=== PATIENT | female | born 1960 | race Caucasian/White ===

== ENCOUNTER 2017-04-09 10:47 | Emergency (ER) | payer OTHER ==
[~2017-04-09] VITALS: Ht 154.9 cm; Wt 68.8 kg
[~2017-04-09 10:47] MED LIST: BUDE.5I NEB; IBUP800T23 PO; PERC5TAB12 PO; PROZ20CA11 PO
[2017-04-09 11:03] VITALS: BP 125/79; PULSE 88; RESP 22; TEMP 97.9; O2SAT 94
[2017-04-09] MEDS ORDERED: TRAZ50TA12 PO (11:23)
[2017-04-09] MEDS ORDERED: PULM180I INH (11:23)
[2017-04-09] MEDS ORDERED: LOVA20TA PO (11:23)
[2017-04-09] MEDS ORDERED: VENTAER INH (11:23)
[2017-04-09] MEDS ORDERED: ESSE250T PO (11:23)
[2017-04-09] MEDS ORDERED: PROZ40CA PO (11:23)
[2017-04-09] MEDS ORDERED: ALPR.25 PO (11:23)
[2017-04-09] MEDS ORDERED: RED600TA PO (11:23)
[2017-04-09] MEDS ORDERED: [UNRECOGNIZED DRUG - CODE] PO (11:23)
[2017-04-09 11:26] VITALS: BP 119/77; PULSE 90; RESP 20; O2SAT 98
[2017-04-09 11:27] VITALS: O2SAT 98
[2017-04-09] MEDS ORDERED: SODIUM CHLORIDE 0.9% FLUSH 10 ML FLUSH IVF PRN (11:30)
[2017-04-09] MEDS ORDERED: RESP: ALBUTEROL 2.5 MG/IPRATROPIUM 0.5 MG NEB (SCH) INH ONE (11:30)
[2017-04-09 11:50] LABS: AUTOMATED NEUTROPHIL # 3.8 TH/MM3 (1.8-7.7); BASOPHIL % 0.6 % (0.0-2.0); EOSINOPHIL # 0.1 TH/MM3 (0-0.4); HEMATOCRIT 40.2 % (35.0-46.0); HEMO FLAGS DIFF FINAL; LYMPHOCYTE # 1.3 TH/MM3 (1.0-4.8); MEAN CELL VOLUME 85.1 FL (80.0-100.0); MEAN CORPUSCULAR HEMOGLOBIN 28.9 PG (27.0-34.0); MEAN CORPUSCULAR HGB CONC 33.9 % (32.0-36.0); NEUT % 69.4 % (16.0-70.0); PLATELET COUNT 322 TH/MM3 (150-450); RED BLOOD COUNT 4.72 MIL/MM3 (4.00-5.30); RED CELL DISTRIBUTION WIDTH 12.1 % (11.6-17.2); WHITE BLOOD COUNT 5.5 TH/MM3 (4.0-11.0)
[2017-04-09 12:01] LABS: CHLORIDE 106 MEQ/L (98-107); POTASSIUM 3.8 MEQ/L (3.5-5.1); SODIUM (NA) 139 MEQ/L (136-145)
[2017-04-09 12:04] LABS: ANION GAP 9 MEQ/L (5-15); BICARBONATE 23.6 MEQ/L (21.0-32.0); BLOOD UREA NITROGEN 15 MG/DL (7-18)
[2017-04-09 12:06] LABS: APTT (PATIENT) 27.9 SEC (24.3-30.1); INTERNATIONAL NORMALIZED RATIO 0.9 RATIO; PROTHROMBIN TIME - PATIENT 10.2 SEC (9.8-11.6)
[2017-04-09 12:07] LABS: ALT (GPT) 51 U/L (10-53); AST (GOT) 24 U/L (15-37); GLOMERULAR FILTRATION RATE 90 ML/MIN (>89)
[2017-04-09 12:09] LABS: TOTAL BILIRUBIN ADULT 0.3 MG/DL (0.2-1.0)
[2017-04-09 12:10] LABS: ALKALINE PHOSPHATASE 84 U/L (45-117)
--- NOTE | 2017-04-09 12:12 | RADHPO ---
EXAM DATE/TIME: 04/09/2017 12:02 [place] COMPARISON: No previous studies available for comparison. INDICATIONS : Cough, short of breath. MEDICAL HISTORY : Asthma SURGICAL HISTORY : None. ENCOUNTER: Initial ACUITY: 1 week PAIN SCORE: 0/10 LOCATION: Bilateral chest FINDINGS: PA and lateral views of the chest demonstrate the lungs to be symmetrically aerated without evidence of mass, infiltrate or effusion. The cardiomediastinal contours are unremarkable. Osseous structure s are intact. Clips are seen in the right upper quadrant of the abdomen. CONCLUSION: No acute disease. Kareem Silva MD on April 09, 2017 at 12:10 Board Certified Radiologist. This report was verified electronically.
[2017-04-09 12:22] VITALS: BP 119/77; PULSE 84; RESP 20; O2SAT 97
--- NOTE | 2017-04-09 12:58 | PD ---
HPI Chief Complaint: Cold / Flu Symptoms Time Seen by Provider: 11:12 Travel History International Travel<30 days: No Contact w/Intl Traveler<30days: No Traveled to known affect area: No History of Present Illness HPI Patient is a 56 year old female who comes in complaining of cough and shortness of breath. She says it has been going on since the past week. She says she saw her primary care physician Saturday and was given a prescription for azithromycin as well as prednisone. She says she is only taking 4 mg of prednisone daily. She is finishing azithromycin, she started the prednisone Saturday. She says she still feels like her cough is not improving and she feels short of breath. She has been using albuterol at home without much relief. She denies fever or chills. She denies any recent travel. She denies any leg pain or swelling. PFSH Past Medical History Autoimmune Disease: No Anxiety: Yes (DEPRESSION/ANXIETY DUE TO OF SON) Cancer: Yes (SKIN CA - NOSE) Cardiovascular Problems: No Diabetes: No Diminished Hearing: No Endocrine: No Gastrointestinal Disorders: Yes (DIVERTICULITIS) Genitourinary: No Hepatitis: No Hiatal Hernia: No Hypertension: No Immune Disorder: No Implanted Vascular Access Dvce: No Musculoskeletal: Yes (ARTHRITIS) Neurologic: Yes (MIGRAINES IN THE PAST) Psychiatric: Yes (DEPRESSION) Reproductive: No Respiratory: Yes (ASTHMA) Sickle Cell Disease: No Thyroid Disease: No Influenza Vaccination: Yes ?: Not LMP: MANOPAUSAL Menopausal: Yes : 2 Para: 2 Past Surgical History Abdominal Surgery: Yes (CHOLECYSTECTOMY) AICD: No Section: Yes Cholecystectomy: Yes Gynecologic Surgery: Yes ( X 2) Joint Replacement: No Pacemaker: No Social History Alcohol Use: Yes (SOCIALLY) Tobacco Use: No Substance Use: No Allergies-Medications (Allergen,Severity, Reaction): Coded Allergies: Penicillin (Verified Allergy, Severe, 04/09/17) ANAPHYLAXIS Reported Meds & Prescriptions Reported Meds & Active Scripts Active Reported Red Yeast Rice (Red Yeast Rice Extract) 600 Mg Tab 1 Tab PO BID Fish Oil Gummies ([place]-3S/Dha/Epa/Fish Oil/D3) 1 Each Tab.chew 2 Tab PO DAILY Xanax (Alprazolam) 0.25 Mg Tab 0.25 Mg PO Q6H PRN Ventolin Hfa 18 GM Inh (Albuterol Sulfate) 90 Mcg/Act Aer 2 Puff INH Q4-6H PRN Magnesium 250 Mg Tab 2 Tab PO DAILY Pulmicort Flexhaler (Budesonide Powder Inh) 180 Mcg/Act Inhp 180 Mcg INH Q12HR Trazodone (Trazodone HCl) 50 Mg Tab 100 Mg PO HS Prozac (Fluoxetine HCl) 40 Mg Cap 40 Mg PO DAILY Lovastatin 20 Mg Tab 20 Mg PO DAILY Review of Systems Except as stated in HPI: all other systems reviewed are Neg General / Constitutional: No: Fever, Chills Eyes: No: Blurred Vision HENT: No: Headaches, Lightheadedness Cardiovascular: No: Chest Pain or Discomfort Respiratory: Positive: Cough, Shortness of Breath Gastrointestinal: No: Nausea, Vomiting Musculoskeletal: No: Myalgias, Edema Skin: No Rash Neurologic: No: Weakness, Dizziness Physical Exam Narrative GENERAL: Awake and alert, in no acute distress. SKIN: Focused skin assessment warm/dry. HEAD: Atraumatic. Normocephalic. EYES: Pupils equal and round. No scleral icterus. ENT: Mucous membranes pink and moist. NECK: Trachea midline. No JVD. CARDIOVASCULAR: Regular rate and rhythm. No murmur appreciated. RESPIRATORY: No accessory muscle use. Clear to auscultation. Breath sounds equal bilaterally. MUSCULOSKELETAL: No obvious deformities. No clubbing. No cyanosis. No edema. No calf tenderness. NEUROLOGICAL: Awake and alert. No obvious cranial nerve deficits. Motor grossly within normal limits. Normal speech. PSYCHIATRIC: Appropriate mood and affect; insight and judgment normal. Data Data Last Documented VS Vital Signs Date Time Temp Pulse Resp B/P Pulse Ox O2 Delivery O2 Flow Rate FiO2 04/09/17 13:13 76 18 104/62 98 Room Air 04/09/17 11:03 97.9 Orders Complete Blood Count With Diff (04/09/17 11:18) Comprehensive Metabolic Panel (04/09/17 11:18) B-Type Natriuretic Peptide (04/09/17 11:18) D-Dimer (04/09/17 11:18) Act Partial Throm Time (Ptt) (04/09/17 11:18) Prothrombin Time / Inr (Pt) (04/09/17 11:18) Troponin I (04/09/17 11:18) Iv Access Insert/Monitor (04/09/17 11:18) Ecg Monitoring (04/09/17 11:18) Oximetry (04/09/17 11:18) Oxygen Administration (04/09/17 11:18) Chest, Pa & Lat (04/09/17 11:18) Sodium Chloride 0.9% Flush (Ns Flush) (04/09/17 11:30) Albuterol-Ipratropium Neb (Duoneb Neb) (04/09/17 11:30) Methylprednisolone So Succ Inj (Solumedr (04/09/17 13:00) Labs Laboratory Tests Test 04/09/17 11:39 White Blood Count 5.5 TH/MM3 Red Blood Count 4.72 MIL/MM3 Hemoglobin 13.6 GM/DL Hematocrit 40.2 % Mean Corpuscular Volume 85.1 FL Mean Corpuscular Hemoglobin 28.9 PG Mean Corpuscular Hemoglobin 33.9 % Concent Red Cell Distribution Width 12.1 % Platelet Count 322 TH/MM3 Mean Platelet Volume 7.2 FL Neutrophils (%) (Auto) 69.4 % Lymphocytes (%) (Auto) 23.0 % Monocytes (%) (Auto) 5.0 % Eosinophils (%) (Auto) 2.0 % Basophils (%) (Auto) 0.6 % Neutrophils # (Auto) 3.8 TH/MM3 Lymphocytes # (Auto) 1.3 TH/MM3 Monocytes # (Auto) 0.3 TH/MM3 Eosinophils # (Auto) 0.1 TH/MM3 Basophils # (Auto) 0.0 TH/MM3 CBC Comment DIFF FINAL Differential Comment Prothrombin Time 10.2 SEC Prothromb Time International 0.9 RATIO Ratio Activated Partial 27.9 SEC Thromboplast Time D-Dimer Quantitative (PE/DVT) 0.20 MG/L FEU Sodium Level 139 MEQ/L Potassium Level 3.8 MEQ/L Chloride Level 106 MEQ/L Carbon Dioxide Level 23.6 MEQ/L Anion Gap 9 MEQ/L Blood Urea Nitrogen 15 MG/DL Creatinine 0.67 MG/DL Estimat Glomerular Filtration 90 ML/MIN Rate Random Glucose 99 MG/DL Calcium Level 9.3 MG/DL Total Bilirubin 0.3 MG/DL Aspartate Amino Transf 24 U/L (AST/SGOT) Alanine Aminotransferase 51 U/L (ALT/SGPT) Alkaline Phosphatase 84 U/L Troponin I LESS THAN 0.02 NG/ML B-Type Natriuretic Peptide 3 PG/ML Total Protein 7.9 GM/DL Albumin 4.1 GM/DL MDM Medical Decision Making Medical Screen Exam Complete: Yes Emergency Medical Condition: Yes Interpretation(s) ECG shows NSR at 83, no ST elevation or depression, normal intervals Differential Diagnosis Bronchitis versus pneumonia versus asthma exacerbation Narrative Course Patient is a 48-year-old female comes in complaining of cough and shortness of breath. Exam shows lungs to be clear to auscultation. Patient's oxygen saturation is 97-100% on room air. IV established, labs sent. Labs show no acute abnormalities. D-dimer is negative. Chest x-ray performed shows no acute abnormalities. Given 1 DuoNeb as well as a dose of Solu-Medrol. We will discharge with prescription for higher dose of prednisone for the next 3 days. Advised follow- up with her doctor. Advised to continue using albuterol. Advised to return to the ED as needed for any worsening symptoms. Diagnosis Primary Impression: Cough Patient Instructions: Acute Cough (ED), General Instructions Additional Instructions: Follow up with your primary doctor. You can take the codeine for severe cough, but be careful as it may make you drowsy. Start the prednisone tomorrow, do not take your other prescription. Return to the ED as needed for any worsening symptoms. Scripts Prednisone 50 Mg Tab50 Mg PO DAILY 3 Days Ref 0 Prov:Dorinda Godwin MD 04/09/17 Guaifenesin-Codeine Liq 100-10 Mg/5 Ml Soln10 Ml PO Q6H PRN (COUGH) #1 BOTTLE Ref 0 Prov:Dorinda Godwin MD 04/09/17 Disposition: 01 DISCHARGE HOME Condition: Stable Dorinda Godwin MD April 09, 2017 12:58
[2017-04-09] MEDS ORDERED: methylPREDNISolone SOD SUCC 125 MG/2 ML VIAL IV PUSH ONE (13:00)
[2017-04-09 13:13] VITALS: BP 104/62; PULSE 76; RESP 18; O2SAT 98
[2017-04-09] MEDS ORDERED: GUAI100S5 PO (13:40)
[2017-04-09] MEDS ORDERED: PRED50 PO (13:41)
--- NOTE | 2017-04-10 09:44 | EKG ---
Date Performed: 04/09/2017 Time Performed: 11:06:56 PTAGE: 56 years EKG: Sinus rhythm Anterior T wave changes are nonspecific Low QRS voltages in precordial leads Borderline ECG PREVIOUS TRACING : 01/05/2015 19.24 DOCTOR: Carlos Gardner Interpretating Date/Time 04/10/2017 09:42:11
== END 2017-04-09 13:51 | disposition home or self-care (01) ==
LOC: PHED 10:47
DX: R05 Cough (principal); R06.02 Shortness of breath; J45.909 Unspecified asthma, uncomplicated; M19.90 Unspecified osteoarthritis, unspecified site; F32.9 Major depressive disorder, single episode, unspecified; F41.9 Anxiety disorder, unspecified; Z88.0 Allergy status to penicillin; Z79.899 Other long term (current) drug therapy
CPT/HCPCS: 71020; 80053; 83880; 84484; 85025; 85379; 85610; 85730; 93005; 94664; 96374; 99284; J2930